=== PATIENT | male | born 1950 | race Caucasian/White ===

== ENCOUNTER 2024-08-16 16:38 | Emergency (ER) | payer MEDICARE ==
[2024-08-16] MEDS: cloNIDine 0.1 MG Tab PO ONE (17:42)
[2024-08-16] MEDS: Sodium Chloride 0.9% 500 ML IV ONE (17:43)
[2024-08-16 17:47] LABS: BASOPHILS ABSOLUTE AUTO 0.06 K/uL (0.00-0.10); BASOPHILS PERCENT AUTO 0.7 % (0.1-1.3); EOSINOPHILS ABSOLUTE AUTO 0.03 K/uL (0.00-0.40); EOSINOPHILS PERCENT AUTO 0.4 % (0.0-5.4); HEMOGLOBIN 12.6 g/dL (12.9-16.9); IMMATURE GRAN ABSOLUTE AUTO 0.09 K/uL (0.00-0.23); IMMATURE GRAN PERCENT AUTO 1.1 % (0.0-0.7); LYMPHOCYTES ABSOLUTE AUTO 1.08 K/uL (0.8-3.3); LYMPHOCYTES PERCENT AUTO 13.3 % (11.4-47.7); MEAN CORPUSCULAR HEMOGLOBIN 31.6 pg (31.6-35.5); MEAN CORPUSCULAR HGB CONC 37.1 g/dL (31.6-35.5); MEAN CORPUSCULAR VOLUME 85.2 fL (81.4-99.0); MONOCYTES ABSOLUTE AUTO 0.91 K/uL (0.20-0.90); MONOCYTES PERCENT AUTO 11.2 % (3.3-12.6); NEUTROPHILS ABSOLUTE AUTO 5.92 K/uL (1.0-7.6); NEUTROPHILS PERCENT AUTO 73.3 % (40.0-78.1); PLATELET COUNT,PLT 217 K/uL (130-375); RED BLOOD CELL COUNT 3.99 M/uL (4.14-5.76); WHITE BLOOD CELL COUNT,WBC 8.1 K/uL (3.2-11.0)
[2024-08-16 17:55] LABS: APPEARANCE,URINE CLOUDY (CLEAR); COLOR,URINE RED (YELLOW)
[2024-08-16 17:56] LABS: AMORPHOUS SEDIMENT,URINE NOT SEEN; BACTERIA,URINE FEW; EPITHELIAL CELLS,URINE NOT SEEN; MUCUS,URINE NOT SEEN; OCCULT BLOOD,URINE LARGE (NEGATIVE)
[2024-08-16 18:04] LABS: PROTHROMBIN TIME 10.4 sec (9.2-10.6)
[2024-08-16 18:14] LABS: RBC,URINE PACKED (0-5)
[2024-08-16 18:15] LABS: WBC,URINE 0-5 (0-5)
[2024-08-16 18:17] LABS: A/G RATIO 1.4 (1.2-2.2); ALANINE AMINOTRANSFERASE,ALT 28 U/L (12-78); ALBUMIN 4.4 g/dL (3.4-5.0); ALKALINE PHOSPHATASE 90 U/L (46-116); ASPARTATE AMNIOTRANSFERASE,AST 25 U/L (15-37); BILIRUBIN TOTAL 0.6 mg/dL (0.2-1.0); BLOOD UREA NITROGEN,BUN 18 mg/dL (7-18); CALCIUM 9.5 mg/dL (8.5-10.1); CARBON DIOXIDE,CO2 23 mmol/L (21-32); CHLORIDE,CL 86 mmol/L (100-108); CREATININE 1.3 mg/dL (0.8-1.3); EST CRCL DRUG DOSING (CG) 50.69 mL/min; ESTIMATED GFR 57 mL/min (>60); GLUCOSE RANDOM 95 mg/dL (74-106); POTASSIUM,K 3.9 mmol/L (3.6-5.2); PRO B-TYPE NATRIUR PEPT,BNPPRO 156 pg/mL (5-450); PROTEIN TOTAL,TP 7.6 g/dL (6.4-8.2); SODIUM,NA 122 mmol/L (140-148); TROPONIN I HIGH SENSITIVITY 17.6 pg/mL (<=60.3)
[2024-08-16 18:18] LABS: ANION GAP 16.9 mmol/L (5.0-14.0)
== END 2024-08-16 21:16 | disposition home or self-care (01) ==
LOC: JP.ED 16:38
DX: R31.9 Hematuria, unspecified (principal); N13.0 Hydronephrosis with ureteropelvic junction obstruction; N28.89 Other specified disorders of kidney and ureter; R06.89 Other abnormalities of breathing; I10 Essential (primary) hypertension; Z88.2 Allergy status to sulfonamides; Z79.82 Long term (current) use of aspirin; Z79.899 Other long term (current) drug therapy
CPT/HCPCS: 36415; 51702; 51798; 71045; 71045-26; 74176; 74176-26; 80053; 80307; 81001; 83605; 83880; 84484; 85025; 85610; 93005; 93010; 99284; 99284-25; A9270-GY; G0103; J7030